=== PATIENT | male | born 1930 | race Caucasian/White ===

== ENCOUNTER → 2016-06-08 | Outpatient (CLI) | payer MEDICARE, BC ==
[~2016-06-08] MED LIST: CLOPIDOGREL BIS75 MG PO; COATED ASPIRIN325 M1 PO; LEVOTHYROXINE100 MC1 PO; LOPRESSOR PO; NON-ASPIRIN PA500 M1 PO; SIMVASTATIN40 MG PO
--- NOTE | ~2016-06-08 | CO ---
Unit #: [id number] #: [id number] Patient: ADI TURCIOS [id number] [address] [place], [place] [address] [id number] O MR#: [id number] NAME: ADI TURCIOS ROOM: Age: Sex: M Admission Date: 06/08/2016 : 1930 Attending Physician: Will Astudillo M.D. Primary Care Physician: Anselmo Burdick M.D. Consultation Date: 06/08/2016 CONSULTATION REPORT REASON FOR CONSULTATION Preoperative medical evaluation prior to right total hip arthroplasty scheduled by Dr. Astudillo for June 20, 2016. HISTORY OF PRESENT ILLNESS The patient is an 86-year-old male who presented to preprocedural screening for the reason as indicated above. He has no complaints at the time of this interview today. He denies chest pain, pressure, arm, neck, or jaw pain or pressure, dyspnea on exertion, shortness of air, PND, orthopnea, or sleep apnea. He denies a history of myocardial infarction, congestive heart failure, CVA, TIA, or diabetes. He has a history of chronic kidney disease and is being seen by a carton lettering machine operator whose office is off [facility], but he does not know the name of this physician. He denies lightheadedness, dizziness, presyncope, syncope, and palpitations. He has been evaluated by Dr. Astudillo and scheduled for the above-referenced procedure. PAST MEDICAL HISTORY 1. Osteoarthritis. 2. Coronary artery disease, status post stent placement 20 years ago, on Plavix and aspirin, established with Dr. Bhatia. 3. Hypothyroidism. 4. Hyperlipidemia. 5. Hypertension. 6. History of nasal fracture with possible right deviated septum. 7. Chronic kidney disease. PAST SURGICAL HISTORY 1. Bilateral knee replacements. 2. Left hip replacement. 3. Right carpal tunnel release. 4. Cardiac catheterization x1 with stent placement 20 years ago. Patient denies a personal and family history of complications to anesthesia. ALLERGIES Denies latex allergy, denies medication allergies. HOME MEDICATIONS 1. Simvastatin 40 mg p.o. at bedtime. 2. Clopidogrel bisulfate 75 mg p.o. daily. 3. Coated aspirin 325 mg p.o. daily. 4. Lopressor 50 mg p.o. b.i.d. Unit #: [id number] #: [id number] Patient: ADI TURCIOS 5. Levothyroxine sodium 100 mcg p.o. daily. 6. Nonaspirin pain reliever (acetaminophen 500 mg p.o. b.i.d.). SOCIAL HISTORY Denies tobacco use and illicit drug use. Occasionally consumes beer or scotch. FAMILY HISTORY Per review of Dr. Astudillo's office note, father had history of lung and respiratory disease and mother had history of cancer. Please note, history (1) information was confirmed with the patient. REVIEW OF SYSTEMS Patient has not had a dental exam but is aware that he needs to schedule one for preoperative dental clearance. He has no wounds on his skin. A 10-point review of systems is conducted and negative except as indicated under History of Present Illness above. PHYSICAL EXAMINATION GENERAL: An 76-year-old male awake, alert, and in no acute distress. VITAL SIGNS: Temperature 97.5, heart rate 60, respiratory rate 20, blood pressure 150/82, and oxygen saturation 95% on room air. HEENT: Atraumatic and normocephalic. Sclerae are anicteric. No discharge from eyes, ears, or nares. LYMPHATICS: No preauricular, postauricular, tonsillar, or submental anterior or posterior cervical, supraclavicular, or infraclavicular adenopathy. ENDOCRINE: No thyromegaly, thyroid nodules, or tenderness. RESPIRATORY: Clear to auscultation all pandey bilaterally without wheezes, rhonchi, or rales. CARDIOVASCULAR: S1 and S2, regular rate and rhythm, without murmur or rub. GASTROINTESTINAL: Bowel sounds positive x4. Soft, nontender, and nondistended. EXTREMITIES: No edema, cyanosis, or clubbing. Strength 5 over 5 all extremities bilaterally to flexion and extension. NEUROLOGIC: Awake, alert, and oriented x3. Speech clear. Follows commands. DERMATOLOGIC: Generalized ecchymosis on upper extremities. Skin intact. DIAGNOSTIC STUDIES LABORATORY: WBC 5.2, hemoglobin 15, hematocrit 43.9, and platelet count 225,000. Sodium 143, potassium 4.2, chloride 108, CO2 of 24, glucose 76, BUN 16, creatinine 1.6, calcium 9.4, AST 20, ALT 15, alkaline phosphatase 61, bilirubin total 0.8, total protein 7.1, and albumin 4.4. PT 10.4 and INR 1. Urinalysis protein trace, otherwise negative, with neither microscopic nor culture indicated. Blood type O positive. MRSA screen and TSH and free T4 pending at this time. IMAGING: Two-view chest x-ray report pending at this time. CARDIOLOGY: A 12-lead EKG tracing coming from Dr. Bhatia's office. The patient states he had an EKG performed within the past week. IMPRESSION The patient is an 86-year-old male who presented to preprocedural screening for: 1. Medical evaluation prior to right total hip arthroplasty scheduled by Unit #: [id number] #: [id number] Patient: ADI TURCIOS Dr.. The patient's Benjamin Revised Cardiac Risk Index is equal to 0.4%. This represents the patient's perioperative risk of cardiac , fatal or nonfatal myocardial infarction, cardiopulmonary arrest, arrhythmia, and/or pulmonary edema. This has been discussed in detail with the patient, and he wishes to proceed with surgery as scheduled at this time. The patient has a note of cardiac clearance from Dr. Renee Bhatia stating that from a cardiovascular standpoint, the patient is cleared to undergo surgery. 2. Coronary artery disease with history of stent placement. The patient is on Plavix and aspirin. The patient has been advised to hold ASA and Plavix five days prior to surgery. 3. Hypothyroidism. TSH and free T4 are pending at this time. At this point, continue current dose of levothyroxine. 4. History of nasal fracture and possible deviated septum. This does not appear to be interfering with the patient's functioning today. 5. Osteoarthritis. 6. Chronic kidney disease with baseline creatinine of 1.6 as of today. Will monitor renal function perioperatively and consult Nephrology if indicated. Thank you for allowing us to participate in the care of this patient. We will gladly follow for postop medical management pending review of 12-lead EKG and any further recommendations Dr. Astudillo has for preop clearance. Again, the patient has been given the names of Dr. Lakhwinder Best and Dr. Heide Jennifer for preop dental clearance if he is unable to get in to see his regular dentist. Dictated by... Cher Perez A.P.R.N. for Alhaji Zelaya/dagoberto TD: 06/08/2016 16:49 JOB #: [id number] CONSULTATION REPORT Page 1 of 1 X Cher Perez VP [employer] X CONSULTATION REPORT
--- NOTE | ~2016-06-08 | CR63 ---
[facility] A Service of [facility] & [facility] RADIOLOGY TEXT RESULTS PATIENT: ADI TURCIOS LOCATION: [facility] : 32 UNIT #: [id number] AGE: [address]: Will Astudillo MD SEX: M ORDER DR: [id number] [facility] [address] [place], [place] [address] [id number] O MR#: [id number] Acc #: [id number] NAME: ADI TURCIOS : 1930 SEX: M STUDY DATE/TIME: 06/08/2016 13:12 UNIT: [facility] ROOM: STUDY DESCRIPTION: CR Chest 2 View Attending Physician: Will Astudillo M.D. Referring Physician: Will Astudillo M.D. Ordering Physician: Will Astudillo M.D. Primary Care Physician: Anselmo Burdick M.D. MEDICAL IMAGING REPORT This report is preliminary unless electronic signature is present EXAM Chest, 2 views, 06/08/2016, 1312 hours. CLINICAL HISTORY 86-year-old with history of hypertension and hyperlipidemia, preop for right hip replacement surgery. COMPARISON None FINDINGS Upright PA and lateral views of the chest demonstrate normal heart size. There is a mildly tortuous descending thoracic aorta. Hilar contours are normal. The lungs are clear and there are no effusions. IMPRESSION 1. Normal heart size with mildly tortuous descending thoracic aorta. 2. The lungs are clear and there are no effusions. Dictated by... Lela Torres M.D. THIS IS AN ELECTRONICALLY VERIFIED REPORT Lela Torres M.D. at 06/08/2016 6:47 PM TO/blossom TD: 06/08/2016 14:29 JOB #: [id number] MEDICAL IMAGING REPORT Page 1 of 1 COPY
[2016-06-08 11:02] LABS: URINE APPEARANCE CLEAR; URINE BILIRUBIN NEG (NEG); URINE BLOOD NEG (NEG); URINE COLOR DK YELLOW; URINE GLUCOSE NEG (NEG); URINE KETONE NEG (NEG); URINE LEUKOCYTE ESTERASE NEG (NEG); URINE NITRATE NEG (NEG); URINE PH 5.5 (5-8); URINE PROTEIN TRACE (NEG); URINE SPECIFIC GRAVITY 1.021 (1.003-1.035)
[2016-06-08 11:03] LABS: HEMATOCRIT 43.9 % (38.0-50.0); MEAN CELL VOLUME 91.3 FL (83-96); MEAN CORPUSCULAR HEMOGLOBIN 31.2 PG (28-34); MEAN CORPUSCULAR HGB CONC 34.2 g/dL (30-36); MEAN PLATELET VOLUME 6.6 FL (6.5-11.5); RED BLOOD COUNT 4.81 X10e (3.90-5.60); RED CELL DISTRIBUTION WIDTH 13.9 % (11.0-15.5); WHITE BLOOD COUNT 5.2 X10e3 (4.0-10.5)
[2016-06-08 11:07] LABS: CULTURE INDICATED? NO
[2016-06-08 11:12] LABS: PROTHROMBIN TIME (PATIENT) 10.4 SECONDS (9.6-11.5)
[2016-06-08 11:43] LABS: ALBUMIN SERUM 4.4 g/dL (3.5-5.0); BILIRUBIN,TOTAL 0.8 mg/dL (0.2-2.0); CALCIUM SERUM 9.4 mg/dL (8.4-10.2); CREATININE SERUM 1.6 mg/dL (0.6-1.4); POTASSIUM 4.2 mmol/L (3.5-5.1); PROTEIN TOTAL SERUM 7.1 g/dL (6.0-8.3)
[2016-06-08 13:28] LABS: THYROID STIMULATING HORMONE 1.87 uIU/ml (0.34-5.60)
== END | disposition home or self-care (01) ==
LOC: CAMB 10:20
PROVIDERS: Orthopaedic Surgery
DX: Z01.818 Encounter for other preprocedural examination (principal); M16.11 Unilateral primary osteoarthritis, right hip; I77.1 Stricture of artery
CPT/HCPCS: 36415; 71020; 80053; 81003; 84439; 84443; 85027; 85610; 86850; 86900; 86901; 87070

== ENCOUNTER 2016-06-20 07:24 | Inpatient (IN) | payer MEDICARE, BC ==
--- NOTE | ~2016-06-20 | OR ---
Unit #: [id number] #: [id number] Patient: ADI TURCIOS [id number] [id number] [facility]. [place], [place] [address] [id number] I MR#: [id number] NAME: ADI TURCIOS ROOM: 452 Date of Procedure: 06/20/2016 Admission Date: 06/20/2016 Surgeon: Will Astudillo M.D. : 1930 Attending Physician: Will Astudillo M.D. Primary Care Physician: Anselmo Burdick M.D. OPERATIVE REPORT PREOPERATIVE DIAGNOSIS Primary localized osteoarthritis of the right hip. POSTOPERATIVE DIAGNOSIS Primary localized osteoarthritis of the right hip. PROCEDURE PERFORMED Right total hip. ASSISTANTS Abdulaziz and Roseline. ESTIMATED BLOOD LOSS About 250. INDICATIONS FOR PROCEDURE The patient is an 86-year-old with severe pain in the right hip. He had pain for months. It has gotten progressively worse. X-rays show he has [id number] with subchondral sclerosis. He has tried injections and anti-inflammatories with no relief of his discomfort. He is brought to the hospital for right total hip. DESCRIPTION OF PROCEDURE The patient was brought to the holding room, given 1 g of Kefzol. This will be continued postop, but discontinued within 23 hours the start time of surgery. He was then given a general anesthetic, placed in decubitus position with the right side up. The right hip was prepped and draped in a sterile fashion. A modified Aufranc incision was mapped out and made. The subcutaneous dissected away and the fascia split longitudinally. Short rotators were taken down with the cautery unit. Posterior hip capsule was identified. This was T'd open. The hip was dislocated posteriorly and the neck osteotomy performed at the appropriate level. The head fragment removed. The femur retracted anteriorly. The labrum was debrided, and the acetabulum was reamed up to a size 51. A 52 mm Gription cup was opened and inserted in 40 degrees of abduction and 20 degrees of forward flexion. A trial neutral 36 mm liner, and after this was done, the patient then had the periarticular injection around the acetabulum. The piriformis sinus was cleaned out with a rongeur and a knife. Starter reamer was passed down. Rigid reamers used up to a size 6. After this was done, broaches were used up to a 6 and a trial reduction carried out with the high offset neck. The hip was reduced. Stability was appropriate in all directions. We then removed the trials. The real Unit #: [id number] #: [id number] Patient: ADI TURCIOS liner was impacted into the cup, and the patient then had the real stem impacted in 20 degrees of anteversion. It was a size 6 high offset neck. We then did another trial reduction with a +5, 36 head. Leg lengths were appropriate. Stability was appropriate and then the wound had rest of the ropivacaine mixture injected. The wound was soaked in Betadine and then bacitracin, and then closed using 0 Ethibond in the capsule. Soft tissue fascia was closed with a running #1 suture and the patient's subcutaneous was closed with 0 and 2-0 Vicryl, and concepcion in the skin. Sterile dressing was applied and after the skin was closed with concepcion and the patient's general anesthetic was reversed, he is transferred to the recovery room in satisfactory condition. Dictated by... Alhaji Brantley/loraine TD: 06/20/2016 22:47 JOB #: [id number] OPERATIVE REPORT Page 1 of 1 X Will Astudillo MD X PROCEDURE OPERATIVE NOTE
--- NOTE | ~2016-06-20 | DS ---
Unit #: [id number] #: [id number] Patient: ADI TURCIOS [id number] [address] [place], [place] [address] [id number] I MR#: [id number] NAME: ADI TURCIOS ROOM: 45 Age: 86 Sex: M Admission Date: 06/20/2016 : 1930 Discharge Date: 06/21/2016 Attending Physician: Will Astudillo M.D. Primary Care Physician: Anselmo Burdick M.D. DISCHARGE SUMMARY ADMITTING DIAGNOSIS Primary localized osteoarthritis of the right hip. DISCHARGE DIAGNOSIS Primary localized osteoarthritis of the right hip. PROCEDURE IN THE HOSPITAL Right total hip. HOSPITAL COURSE Patient was admitted on 06/20 and taken to the range of motion where he underwent a right total hip replacement. Postoperatively, he has done well. His neurovascular exam is intact. He has been up ambulating. It is felt that he can be discharged home today. DISCHARGE INSTRUCTIONS 1. He is weightbearing as tolerated. 2. He is to follow hip precautions. 3. Will set up home health for pro-time draws. He is on Coumadin 5 mg a day at the time of discharge. Will check it again tomorrow and Monday. 4. He will have physical therapy at home as well. CONDITION ON DISCHARGE Improved. MEDICATIONS His medications are his routine home medicines plus: 1. Coumadin. 2. [place] 10/325 for pain. DIAGNOSTIC STUDIES LABORATORY: His hemoglobin today is 11.2. His INR is 1.6. His creatinine has crept up a little bit to 1.6. Will give him a bolus of normal saline prior to discharge. Dictated by... Will Astudillo M.D. LETICIA/ruth TD: 06/21/2016 09:02 Unit #: [id number] #: [id number] Patient: ADI TURCIOS JOB #: [id number] DISCHARGE SUMMARY Page 1 of 1 X Will Astudillo MD DISCHARGE SUMMARY
--- NOTE | ~2016-06-20 | CR145 ---
[facility] A Service of [facility] & [facility] & [facility] RADIOLOGY TEXT RESULTS PATIENT: ADI TURCIOS LOCATION: [place] [address]- : [birth year] UNIT #: [id number] AGE: [address]: Will Astudillo MD SEX: M ORDER DR: [id number] [facility] [address] [place], [place] [address] [id number] I MR#: [id number] Acc #: [id number] NAME: ADI TURCIOS : 1930 SEX: M STUDY DATE/TIME: 06/20/2016 11:40 UNIT: [facility] ROOM: [facility] STUDY DESCRIPTION: CR Hip 1 View Rt Attending Physician: Will Astudillo M.D. Ordering Physician: Will Astudillo M.D. Primary Care Physician: Anselmo Burdick M.D. MEDICAL IMAGING REPORT This report is preliminary unless electronic signature is present EXAM Right hip series 06/20/2016 HISTORY Postop total PACU back. FINDINGS AP radiograph of the right hip is presented. Status post right hip arthroplasty. Orthopedic hardware is intact. Normally located and aligned. Visualized bony pelvis shows no acute abnormality. There is air in the operative bed. There are surgical skin concepcion overlying the operative bed. Dictated by... Chaka Melendez M.D. THIS IS AN ELECTRONICALLY VERIFIED REPORT Chaka Melendez M.D. at 06/21/2016 10:29 AM UMA/mariusz TD: 06/20/2016 12:42 JOB #: [id number] MEDICAL IMAGING REPORT Page 1 of 1 COPY
[2016-06-20 08:26] LABS: PROTHROMBIN TIME (PATIENT) 10.4 SECONDS (9.6-11.5)
[2016-06-20] MEDS ORDERED: SIMVASTATIN40 MG PO (11:03)
[2016-06-20] MEDS ORDERED: CLOPIDOGREL BIS75 MG PO (11:03)
[2016-06-20] MEDS ORDERED: COATED ASPIRIN325 M1 PO (11:04)
[2016-06-20] MEDS ORDERED: LEVOTHYROXINE100 MC1 PO (11:05)
[2016-06-20] MEDS ORDERED: LOPRESSOR PO (11:05)
[2016-06-20] MEDS ORDERED: NON-ASPIRIN PA500 M1 PO (11:07)
[2016-06-21 03:02] LABS: HEMATOCRIT 33.3 % (38.0-50.0); HEMOGLOBIN 11.2 gm/dL (13.0-16.0)
[2016-06-21 03:17] LABS: INR 1.6
[2016-06-21 03:21] LABS: PROTHROMBIN TIME (PATIENT) 17.3 SECONDS (9.6-11.5)
[2016-06-21 03:32] LABS: BUN/CREATININE RATIO 13.75; CALCIUM SERUM 8.1 mg/dL (8.4-10.2); CREATININE SERUM 1.6 mg/dL (0.6-1.4); MAGNESIUM 1.6 mg/dL (1.6-3.0); POTASSIUM 4.4 mmol/L (3.5-5.1)
== END 2016-06-21 15:11 | DRG 470 ==
LOC: CSUR 07:24 → CPACUOF 08:30 → C4B 12:14
PROVIDERS: Nurse Practitioner; Orthopaedic Surgery
PROC: 0SR902Z Replacement of Right Hip Joint with Metal on Polyethylene Synthetic Substitute, Open Approach (ICD-10-PCS; principal; 2016-06-20 09:30)
DX: M16.11 Unilateral primary osteoarthritis, right hip (principal); Z96.642 Presence of left artificial hip joint; I12.9 Hypertensive chronic kidney disease with stage 1 through stage 4 chronic kidney disease, or unspecified chronic kidney disease; D62 Acute posthemorrhagic anemia; Z96.653 Presence of artificial knee joint, bilateral; Z87.891 Personal history of nicotine dependence; M25.531 Pain in right wrist; M19.072 Primary osteoarthritis, left ankle and foot; E03.9 Hypothyroidism, unspecified; E78.5 Hyperlipidemia, unspecified; I25.10 Atherosclerotic heart disease of native coronary artery without angina pectoris; Z95.5 Presence of coronary angioplasty implant and graft; N18.9 Chronic kidney disease, unspecified
CPT/HCPCS: 73501; 80048; 83735; 85014; 85018; 85610; 94761; 97110; 97116; 97161; 97530; C1776; G8978-GP; G8979-GP; J0131; J0171; J0690; J0735; J1100; J1885; J2250; J2405; J2795; J3010